=== PATIENT | female | born 1980 | race Caucasian/White ===

== ENCOUNTER 2019-09-26 02:10 | Emergency (ER) | payer MEDICAID ==
[~2019-09-26] VITALS: Ht 167.6 cm; Wt 62.8 kg
[2019-09-26 02:25] VITALS: Ht 167.6 cm; Wt 62.8 kg
[2019-09-26 03:55] VITALS: BP 110/61
== END 2019-09-26 03:55 | disposition home or self-care (01) ==
LOC: ED 02:10
DX: R07.89 Other chest pain (principal); J45.909 Unspecified asthma, uncomplicated
CPT/HCPCS: J1885; Q0092